=== PATIENT | male | born 1960 | race Caucasian/White ===

== ENCOUNTER 2022-08-18 10:58 | Day surgery (SDC) | payer OTHER ==
[2022-08-18 11:51] VITALS: BMI 31.9
[2022-08-18 14:14] VITALS: TEMP 97.7
[2022-08-18 14:48] VITALS: BP 127/72; PULSE 70; RESP 19
== END 2022-08-18 14:46 | disposition home or self-care (01) ==
LOC: JASU-ENDO 10:58
PROVIDERS: ATTEND Internal Medicine Gastroenterology
PROC: 0DBN8ZX Excision of Sigmoid Colon, Via Natural or Artificial Opening Endoscopic, Diagnostic (ICD-10-PCS; principal; 2022-08-18 11:30)
DX: Z12.11 Encounter for screening for malignant neoplasm of colon (principal); D12.7 Benign neoplasm of rectosigmoid junction; K64.8 Other hemorrhoids
CPT/HCPCS: 88305-TC